=== PATIENT | male | born 1955 | race Caucasian/White ===

== ENCOUNTER → 2016-09-03 | Day surgery (SDC) | payer OTHER ==
[~2016-09-03] VITALS: Ht 177.8 cm; Wt 78.9 kg
[~2016-09-03] MED LIST: ACETAMINOPHEN 325 MG TAB PO PRN; ACETYLCHOLINE OPHTH SOLN 1% 2ML As Ordered ONE; ATOR1TAB21 PO; AcetaZOLAMIDE 500 MG ER CAP PO ONE; BALANCED SALT IRRIGATION SOLUTION 500ML BAG (FOR OR EYE MACHINE) As Ordered ONE; BALANCED SALT SOLN OPHTH 15 ML BTL As Ordered ONE; CAPT1TAB18 PO; CEFUROXIME 1MG/0.1ML INTRACAMERAL INJ As Ordered ONE; CYCLOPENTOLATE 2% OPHTH SOLN OS ONE; D5W/0.2% SODIUM CHLORIDE 250 ML IV ONE; DRIS50002 PO; HEALON DUET (HEALON 10MG/ML 0.55ML & HEALON ENDOCOAT 30MG/ML 0.85ML) As Ordered ONE; HYDR25TAB PO; KETOROLAC 0.5% OPHTH SOLN OS ONE; LIDOCAINE 1% SDV 5 ML VIAL As Ordered ONE; LIDOCAINE 4% INJ 5 ML AMP OU ONE; MIDAZOLAM INJ 2 MG/2 ML VIAL (J2250) As Ordered ONE; OFLOXACIN 0.3 % (OCUFLOX) OPTH SOL 5ML OS ONE; PHENYLEPHRINE 2.5% OPHTH SOL 2ML OS ONE; POTA10CA PO; POVIDONE-IODINE 5% OPHTH PREP SOL 30ML As Ordered ONE; PROPARACAINE 0.5% OPHTH SOL 15ML OS PRN; TRIMETHOBENZAMIDE 300 MG CAP PO PRN; TROPICAMIDE 1% OPHTH SOLN 2 ML OS ONE; fentaNYL 100 MCG/2 ML INJECTION (J3010) As Ordered ONE
[2016-09-03 14:05] VITALS: BP 162/86
--- NOTE | 2016-09-04 12:36 | RO ---
DATE OF PROCEDURE: 09/03/2016 PREPROCEDURE DIAGNOSIS: Age-related nuclear cataract, left eye. POSTPROCEDURE DIAGNOSIS: Age-related nuclear cataract, left eye. PROCEDURE: Femtosecond cataract extraction with posterior chamber intraocular lens. The lens used was PCB00 19.5 diopter. SURGEON: Manisha Mandel MD DROP MACHINE OPERATOR: ANESTHESIA: DESCRIPTION OF PROCEDURE: The patient was brought to the operating room and put under the femtosecond laser. A lid speculum was placed between the lids, and the laser was lowered on. Docking was achieved with good suction. The laser procedure was performed with no difficulty. The laser was then removed from the eye, and the lid speculum was removed. The laser was moved over to the operating microscope and prepped and draped in the usual fashion. A lid speculum was placed between the lids. The eye was fixated. The side port incision was opened up with a spatula. 1% non-preservative lidocaine was instilled; then, viscoelastic was instilled. The main incision was then opened with the spatula. The capsulorrhexis was removed from the eye with the Utrata forceps. The lens was then hydrodissected, and a phacoemulsification unit was used to make a groove in the nucleus and one meridian. The nucleus was cracked into four quadrants, and then each quadrant was removed with the phacoemulsification unit. Any remaining cortex was removed with the irrigation and aspiration (I and A) unit. The capsular bag was refilled with viscoelastic. A posterior chamber intraocular lens was placed in the capsular bag. The remaining viscoelastic was removed. The wound was hydrated. Miochol and cefuroxime were instilled. The wound was watertight. The patient tolerated the procedure well and went to the recovery room in stable condition.
== END | disposition home or self-care (01) ==
LOC: M SDC 10:52
PROVIDERS: ATTEND Ophthalmology
DX: H25.12 Age-related nuclear cataract, left eye (principal); H40.9 Unspecified glaucoma; R01.1 Cardiac murmur, unspecified; I10 Essential (primary) hypertension; E78.00 Pure hypercholesterolemia, unspecified; R06.09 Other forms of dyspnea; Z79.899 Other long term (current) drug therapy
CPT/HCPCS: 66984; J2250; J3010

== ENCOUNTER → 2017-11-16 | Outpatient (CLI) | payer OTHER ==
[~2017-11-16] MED LIST changes: -ACETAMINOPHEN 325 MG TAB PO PRN; -ACETYLCHOLINE OPHTH SOLN 1% 2ML As Ordered ONE; -ATOR1TAB21 PO; -AcetaZOLAMIDE 500 MG ER CAP PO ONE; -BALANCED SALT IRRIGATION SOLUTION 500ML BAG (FOR OR EYE MACHINE) As Ordered ONE; -BALANCED SALT SOLN OPHTH 15 ML BTL As Ordered ONE; -CAPT1TAB18 PO; -CEFUROXIME 1MG/0.1ML INTRACAMERAL INJ As Ordered ONE; -CYCLOPENTOLATE 2% OPHTH SOLN OS ONE; -D5W/0.2% SODIUM CHLORIDE 250 ML IV ONE; -DRIS50002 PO; +GLUCAGON FOR INJ 1 MG VIAL (J1610) As Ordered; -HEALON DUET (HEALON 10MG/ML 0.55ML & HEALON ENDOCOAT 30MG/ML 0.85ML) As Ordered ONE; -HYDR25TAB PO; +ISOVUE-370 76% 100ML VIAL (Q9967) As Ordered; -KETOROLAC 0.5% OPHTH SOLN OS ONE; -LIDOCAINE 1% SDV 5 ML VIAL As Ordered ONE; -LIDOCAINE 4% INJ 5 ML AMP OU ONE; -MIDAZOLAM INJ 2 MG/2 ML VIAL (J2250) As Ordered ONE; -OFLOXACIN 0.3 % (OCUFLOX) OPTH SOL 5ML OS ONE; -PHENYLEPHRINE 2.5% OPHTH SOL 2ML OS ONE; -POTA10CA PO; -POVIDONE-IODINE 5% OPHTH PREP SOL 30ML As Ordered ONE; -PROPARACAINE 0.5% OPHTH SOL 15ML OS PRN; -TRIMETHOBENZAMIDE 300 MG CAP PO PRN; -TROPICAMIDE 1% OPHTH SOLN 2 ML OS ONE; +VoLumen 0.1% SUSPENSION 450ML BOTTLE As Ordered; -fentaNYL 100 MCG/2 ML INJECTION (J3010) As Ordered ONE
== END ==
LOC: M RAD 09:02
DX: K44.9 Diaphragmatic hernia without obstruction or gangrene (principal); K76.89 Other specified diseases of liver; N28.1 Cyst of kidney, acquired; K65.4 Sclerosing mesenteritis
CPT/HCPCS: Q9967

== ENCOUNTER → 2017-11-30 | Outpatient (REF) | payer OTHER ==
[2017-11-30 19:16] LABS: FERRITIN 635 NG/ML (26-388); IRON (FE) 115 UG/DL (65-175); PERCENT SATURATION 41.1 % (19.7-50.0); TOTAL IRON BINDING CAPACITY 280 UG/DL (250-450); TOTAL PROTEIN 7.4 GM/DL (6.4-8.2)
[2017-11-30 19:21] LABS: RETIC HEMOGLOBIN EQUIVALENT 36.2 pg (24-36); RETICULOCYTE # 70.4 10^9/L (17-77); SLIDE REVIEW Report; SOURCE PERIPHERAL SMEAR
[2017-11-30 19:23] LABS: VITAMIN B12 LEVEL 265 PG/ML (247-911)
[2017-11-30 19:26] LABS: RETICULOCYTE % 1.5 % (0.5-1.5)
[2017-12-02 11:59] LABS: ALBUMIN % 60.6 % (55.8-66.1); ALPHA-1-GLOBULIN % 3.7 % (2.9-4.9); ALPHA-2-GLOBULINS % 10.8 % (7.1-11.8); BETA-1-GLOBULINS % 5.5 % (4.7-7.2); BETA-2-GLOBULINS % 5.4 % (3.2-6.5)
[2017-12-02 12:00] LABS: ALBUMIN 4.48 GM/DL (3.29-5.55); ALPHA-1-GLOBULINS 0.27 GM/DL (0.17-0.41); BETA-1-GLOBULINS 0.41 GM/DL (0.28-0.60); GAMMA GLOBULINS 1.04 GM/DL (0.65-1.58)
== END ==
LOC: M LAB REF 17:16
DX: D62 Acute posthemorrhagic anemia (principal)
CPT/HCPCS: 83550

== ENCOUNTER 2017-12-08 11:32 | Day surgery (SDC) | payer OTHER ==
[~2017-12-08 11:32] MED LIST changes: -GLUCAGON FOR INJ 1 MG VIAL (J1610) As Ordered; -ISOVUE-370 76% 100ML VIAL (Q9967) As Ordered; +LIDOCAINE 2% INJ 100 MG/5 ML SDV (FOR ANES.) As Ordered; +PROPOFOL 200 MG/20 ML VIAL As Ordered; -VoLumen 0.1% SUSPENSION 450ML BOTTLE As Ordered
[2017-12-08] MEDS: NS 1,000 ML IV (13:00)
[2017-12-08] MEDS ORDERED: fentaNYL 100 MCG/2 ML INJECTION (J3010) As Ordered (14:02)
[2017-12-08] MEDS ORDERED: PROPOFOL 200 MG/20 ML VIAL As Ordered ×2 (14:27→14:45)
== END 2017-12-08 15:47 | disposition home or self-care (01) ==
LOC: M OPP 11:32
DX: Z12.11 Encounter for screening for malignant neoplasm of colon (principal); D12.2 Benign neoplasm of ascending colon; D12.3 Benign neoplasm of transverse colon; D12.5 Benign neoplasm of sigmoid colon; K62.1 Rectal polyp; R12 Heartburn; K20.9 Esophagitis, unspecified; K29.70 Gastritis, unspecified, without bleeding; R01.1 Cardiac murmur, unspecified; I10 Essential (primary) hypertension; E78.5 Hyperlipidemia, unspecified; K44.9 Diaphragmatic hernia without obstruction or gangrene; K59.00 Constipation, unspecified; D50.0 Iron deficiency anemia secondary to blood loss (chronic); K21.9 Gastro-esophageal reflux disease without esophagitis; Z86.19 Personal history of other infectious and parasitic diseases; H40.40X0 Glaucoma secondary to eye inflammation, unspecified eye, stage unspecified; H25.9 Unspecified age-related cataract; Z79.899 Other long term (current) drug therapy
CPT/HCPCS: 45385

== ENCOUNTER 2018-04-21 10:41 | Day surgery (SDC) | payer OTHER ==
[~2018-04-21 10:41] MED LIST changes: +ACETAMINOPHEN 325 MG TAB PO; -LIDOCAINE 2% INJ 100 MG/5 ML SDV (FOR ANES.) As Ordered; +MIDAZOLAM INJ 2 MG/2 ML VIAL (J2250) As Ordered; +PROPARACAINE 0.5% OPHTH SOL 15ML OD; -PROPOFOL 200 MG/20 ML VIAL As Ordered; +fentaNYL 100 MCG/2 ML INJECTION (J3010) As Ordered
[2018-04-21] MEDS ORDERED: TOBRADEX OPHTH OINT 3.5 GM As Ordered (10:47)
[2018-04-21] MEDS: mitoMYcin 0.2 MG/VIAL KIT FOR OPHTHALMIC USE (J7315 PER 0.2MG) As Ordered ×2 (11:38→12:18)
[2018-04-21] MEDS: LIDOCAINE 3.5 % 1ML OPHTH TOPICAL GEL OU (11:47)
[2018-04-21] MEDS: OFLOXACIN 0.3 % (OCUFLOX) OPTH SOL 5ML OD (11:47)
[2018-04-21] MEDS: TROPICAMIDE 1% OPHTH SOLN 2ML OD (11:48)
[2018-04-21] MEDS: CYCLOPENTOLATE 2% OPHTH SOLN 2ML BTL OD (11:48)
[2018-04-21] MEDS: PHENYLEPHRINE 2.5% OPHTH SOL 2ML OD (11:48)
[2018-04-21] MEDS: PHENYLEPHRINE HCL 10 % OPHTH. SOL 5ML OD (11:59)
[2018-04-21] MEDS: POVIDONE-IODINE 5% OPHTH PREP SOL 30ML As Ordered (12:12)
[2018-04-21] MEDS: BALANCED SALT IRRIGATION SOLUTION 500ML BAG (FOR OR EYE MACHINE) As Ordered (12:14)
[2018-04-21] MEDS: LIDOCAINE 1% MDV 20ML VIAL As Ordered (12:15)
[2018-04-21] MEDS: CEFUROXIME 1MG/0.1ML INTRACAMERAL INJ As Ordered (12:15)
[2018-04-21] MEDS: LIDOCAINE 1% SDV 5 ML VIAL As Ordered (12:15)
[2018-04-21] MEDS: HEALON DUET PRO(HEALON 10MG/ML 0.55ML & HEALON ENDOCOAT 30MG/ML 0.85ML) As Ordered (12:15)
[2018-04-21] MEDS ORDERED: AcetaZOLAMIDE 500 MG ER CAP As Ordered (13:16)
[2018-04-21] MEDS: AcetaZOLAMIDE 500 MG ER CAP PO (13:19)
[2018-04-21] MEDS: KETOROLAC 0.5% OPHTH SOLN OD (13:30)
[2018-04-21] MEDS ORDERED: TRIMETHOBENZAMIDE 300 MG CAP PO (13:30)
[2018-04-21] MEDS ORDERED: ACETAMINOPHEN TAB 650MG DOSE (2X325MG) PO (13:45)
[2018-04-21] MEDS ORDERED: LR 1,000 ML IV (13:45)
== END 2018-04-21 13:33 | disposition home or self-care (01) ==
LOC: M SDC 10:41
DX: H25.11 Age-related nuclear cataract, right eye (principal); H40.10X0 Unspecified open-angle glaucoma, stage unspecified; E78.00 Pure hypercholesterolemia, unspecified; I49.9 Cardiac arrhythmia, unspecified; I10 Essential (primary) hypertension; K44.9 Diaphragmatic hernia without obstruction or gangrene; K59.00 Constipation, unspecified; K21.9 Gastro-esophageal reflux disease without esophagitis; M54.9 Dorsalgia, unspecified; Z79.899 Other long term (current) drug therapy; Z86.19 Personal history of other infectious and parasitic diseases; Z98.42 Cataract extraction status, left eye
CPT/HCPCS: 66984

== ENCOUNTER → 2018-08-25 | Outpatient (CLI) | payer OTHER ==
[~2018-08-25] MED LIST changes: +ACET50CA PO; -ACETAMINOPHEN 325 MG TAB PO; +ATOR1TAB21 PO; +CAPT1TAB18 PO; +CENTTAB PO; +COMB0.2S OD; +DRIS50003 PO; +GASTROGRAFIN SOLUTION 30ML (Q9963) As Ordered ONE; +HYDR25TAB PO; +ISOVUE-370 76% 100ML VIAL (Q9967) As Ordered ONE; +KLOR10TA76 PO; +LATA0.0013 OD; -MIDAZOLAM INJ 2 MG/2 ML VIAL (J2250) As Ordered; +OMEP-221 PO; -PROPARACAINE 0.5% OPHTH SOL 15ML OD; +SAVITAB PO; +TIMO0.5S29 OD; +XALA0.007 OU; -fentaNYL 100 MCG/2 ML INJECTION (J3010) As Ordered
--- NOTE | 2018-08-26 04:30 | REP ---
Clinical: Abnormal findings on CT enterography. Technique: Axial contrast enhanced images from the lung bases to the pubic symphysis using oral (per protocol) and 100 ml Isovue 370 intravenous contrast material with precontrast and delayed images of the abdomen as well as coronal and sagittal re-formations. Comparison: 11/16/2017. Findings: Lung bases are clear. Visualized heart and pericardium normal. 1 cm hypodense lesion in the anterior segment right lobe of the liver with subtle nodular peripheral enhancement paralleling aortic enhancement remains stable and likely represents small hemangioma which may be confirmed by ultrasound. Liver, spleen, pancreas, bilateral adrenal glands and kidneys are normal / stable. 1 cm right renal cyst again noted and unchanged. The enteric system is without obstruction or acute inflammatory process. Scattered diverticula noted without acute diverticulitis. Normal terminal ileum, cecum and appendix identified in the right lower quadrant. A mild mesenteric panniculitis is again noted and remain stable suggesting chronic change. Pelvis demonstrates normal bladder and mildly enlarged prostate gland with coarse central calcifications noted. No ascites. No adenopathy. No free air. Abdominal aorta without aneurysm or dissection. Musculoskeletal structures without focal osseous abnormality. Impression: 1. 1 cm lesion within the right lobe of the liver remains stable and consistent with hemangioma. Confirmation by ultrasound may be warranted. 2. 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 3. Scattered colonic diverticula without acute diverticulitis. 4. Stable 1 cm right renal cyst. Electronically Signed by Herbie Levy MD 08/26/2018 04:22 A
== END ==
LOC: M RAD 12:42
PROVIDERS: ATTEND Physician Assistant Medical
DX: N28.1 Cyst of kidney, acquired (principal); K57.30 Diverticulosis of large intestine without perforation or abscess without bleeding; K65.4 Sclerosing mesenteritis; D13.4 Benign neoplasm of liver
CPT/HCPCS: 74178; Q9963; Q9967

== ENCOUNTER → 2018-09-30 | Outpatient (CLI) | payer OTHER ==
[~2018-09-30] MED LIST changes: -GASTROGRAFIN SOLUTION 30ML (Q9963) As Ordered ONE; -ISOVUE-370 76% 100ML VIAL (Q9967) As Ordered ONE
--- NOTE | 2018-10-01 04:21 | REP ---
Clinical: Abdominal pain. Technique: Real time langford scale ultrasound examination using curved array transducer. Findings: A 9 mm isoechoic area is identified within the right lobe of the liver is otherwise nonspecific by ultrasound evaluation. The remainder of the liver is normal in appearance. The pancreas is incompletely evaluated due to interposed bowel gas but visualized portions appear normal. Gallbladder is normal and without gallstones, wall thickening, or pericholecystic fluid. No biliary ductal dilatation is appreciated and the common bile duct measures 2.8 mm diameter. The right kidney is essentially normal and measures 12.6 x 6.3 x 5.0 cm with 11 mm mid pole cyst. No ascites. Impression: 1. Subcentimeter isoechoic lesion within the liver is otherwise nonspecific by ultrasound. However, in conjunction with multiple prior CT examinations lesion likely represents benign hemangioma. 2. 11 mm simple right renal cyst. Electronically Signed by Herbie Levy MD 10/01/2018 04:12 A
== END ==
LOC: M RAD 08:29
PROVIDERS: ATTEND Physician Assistant Medical
DX: R93.3 Abnormal findings on diagnostic imaging of other parts of digestive tract (principal); N28.1 Cyst of kidney, acquired

== ENCOUNTER 2019-03-18 08:22 | Day surgery (SDC) | payer OTHER ==
[~2019-03-18] VITALS: Ht 177.8 cm; Wt 80.3 kg
[~2019-03-18 08:22] MED LIST changes: +MULTCAP PO; +NS 1,000 ML IV ONE; +OLOP0.1D OD
[2019-03-18] MEDS ORDERED: LIDOCAINE 2% INJ 100 MG/5 ML SDV (FOR ANES.) As Ordered ONE (09:46)
[2019-03-18] MEDS ORDERED: PROPOFOL 200 MG/20 ML VIAL As Ordered ONE (09:46)
--- NOTE | 2019-03-18 10:16 | ROOR ---
Patient Name: Maverick Thorpe Procedure Date: 03/18/2019 9:55 AM Date of : 1955 Age: 63 Room: [facility] Gender: Male Note Status: Finalized Procedure: Colonoscopy Indications: High risk colon cancer surveillance: Personal history of colonic polyps, High risk colon cancer surveillance: Personal history of adenoma with high grade dysplasia, Last colonoscopy: November 2017 Providers: Jamey LEON MD Referring MD: VANE FAIRBANKS MD Requesting Provider: Medicines: Monitored Anesthesia Care Complications: No immediate complications. Procedure: Pre-Anesthesia Assessment: - The heart rate, respiratory rate, oxygen saturations, blood pressure, adequacy of pulmonary ventilation, and response to care were monitored throughout the procedure. The Colonoscope was introduced through the anus and advanced to the terminal ileum, with identification of the appendiceal orifice and IC valve. The colonoscopy was performed without difficulty. The patient tolerated the procedure well. The quality of the bowel preparation was adequate. Findings: The perianal and digital rectal examinations were normal. Two sessile polyps were found in the sigmoid colon and splenic flexure. The polyps were 5 to 6 mm in size. These polyps were removed with a cold snare. Resection and retrieval were complete. A tattoo was seen in the rectum. A post-polypectomy scar was found at the tattoo site. There was no evidence of residual polyp tissue. Mild sigmoid diverticulosis and small internal hemorrhoids. The exam was otherwise without abnormality on direct and retroflexion views. Impression: - Two 5 to 6 mm polyps in the sigmoid colon and at the splenic flexure, removed with a cold snare. Resected and retrieved. - A tattoo was seen in the rectum. A post-polypectomy scar was found at the tattoo site. There was no evidence of residual polyp tissue. - Mild sigmoid diverticulosis and small internal hemorrhoids. - The examination was otherwise normal on direct and retroflexion views. Recommendation: - Repeat colonoscopy in 3 years for surveillance. Jamey Leon MD Jamey LEON MD 03/18/2019 10:16:25 AM Electronically signed by Jamey LEON MD Number of Addenda: 0 Note Initiated On: 03/18/2019 9:55 AM Estimated Blood Loss: Estimated blood loss: none.
[2019-03-18 10:42] VITALS: BP 154/72
== END 2019-03-18 10:44 | disposition home or self-care (01) ==
LOC: M OPP 08:22
PROVIDERS: ATTEND Internal Medicine Gastroenterology
DX: D12.5 Benign neoplasm of sigmoid colon (principal); D12.3 Benign neoplasm of transverse colon; K57.30 Diverticulosis of large intestine without perforation or abscess without bleeding; K64.8 Other hemorrhoids; Z86.010 Personal history of colon polyps; Z09 Encounter for follow-up examination after completed treatment for conditions other than malignant neoplasm

== ENCOUNTER → 2022-05-15 | Outpatient (CLI) | payer MEDICARE, OTHER ==
[~2022-05-15] MED LIST changes: +AMLO1TAB24 PO; +D3 S1CAP3 PO; +ERGO500029 PO; +HYDR-3490 PO; -HYDR25TAB PO; -KLOR10TA76 PO; +LOSA25TA13 PO; +MULT-6 PO; -NS 1,000 ML IV ONE; -OLOP0.1D OD; +OLOP5DRO16 OD; -OMEP-221 PO; +OMEP40CA5 PO; +POTA-136 PO
== END ==
LOC: M LABSMTC 11:07
PROVIDERS: ATTEND Anesthesiology
DX: Z01.812 Encounter for preprocedural laboratory examination (principal); Z11.52 Encounter for screening for COVID-19

== ENCOUNTER 2022-05-20 07:05 | Day surgery (SDC) | payer MEDICARE ==
[~2022-05-20] VITALS: Ht 180.3 cm; Wt 84.7 kg
[~2022-05-20 07:05] MED LIST changes: +NS 1,000 ML IV ONE
[2022-05-20 09:02] VITALS: BP 155/73
[2022-05-20] MEDS ORDERED: propofoL 200 MG/20 ML VIAL As Ordered ONE (09:07)
== END 2022-05-20 09:04 | disposition home or self-care (01) ==
LOC: M OPP 07:05
PROVIDERS: ATTEND Internal Medicine Gastroenterology
DX: Z86.010 Personal history of colon polyps (principal); K63.5 Polyp of colon; K64.8 Other hemorrhoids; K57.30 Diverticulosis of large intestine without perforation or abscess without bleeding; Z79.02 Long term (current) use of antithrombotics/antiplatelets; Z79.899 Other long term (current) drug therapy; I10 Essential (primary) hypertension; K44.9 Diaphragmatic hernia without obstruction or gangrene; Z83.49 Family history of other endocrine, nutritional and metabolic diseases; Z87.891 Personal history of nicotine dependence